=== PATIENT | male | born 1990 | race Caucasian/White ===

== ENCOUNTER 2018-09-06 14:58 | Emergency (ER) | payer SELFPAY ==
[2018-09-06] MEDS: 0.9 % SODIUM CHLORIDE 1,000 ML IV ONE ×2 (15:20→16:30)
--- NOTE | 2018-09-06 15:21 | ED Physician Documentation ---
Chest Pain - HISTORIAN Historian: patient - HPI Stated Complaint: chest pain Chief Complaint: General Adult Onset: minutes (45) Timing: sudden onset Duration: constant Last known Well Date: 09/06/18 Last Known Well Time: 15:00 Last known Well Code/Unknown Code: Unknown Context: other (after smoking meth ) Severity: mild Quality: other (he is sure his heart exploded before he arrived ) Chest Pain Radiation: no radiation Chest Pain Signs/Symptoms: dyspnea, tachypnea. denies: nausea, vomiting Worsened By: nothing Relieved By: nothing Further Comments: yes (He states he was on a train hours directly before coming in to the ER (there is no train station in this town) and he stopped here due to feeling that his heart exploded and he had fluid run all over. He states he ate a cupcake in [place] (unknown time frame) and he is sure she possibly posioned him he is not sure with what and he is not sure when he left [place]. He denies any jaw or arm pain. He feels "numb" all over. He does not take meds daily but does state he took meth about 45 min ago and since he has felt his heart explode on the way and fluid run into his whole body. He is mostly scared because when he was on a train (at some point) he was told by another passenger that he would soon.) - ROS CONST: none - PAST HX [place] risk factors: no pertinent history TAD/AAA risk factors: none Neuro deficit: none GI disease: none Lung disease: none Surgeries/Procedures: none Allergies/Adverse Reactions: Allergies Allergy/AdvReac Type Severity Reaction Status Date / Time No Known Allergies Allergy Verified 09/06/18 15:33 Home Medications: Ambulatory Orders Medication Instructions Recorded 0.9 % Sodium Chloride [Normal 1,000 ml IV NOW #1 iv.soln 09/06/18 Saline] - SOCIAL HX Smoking History: cigarettes Alcohol Use: occasionally Drug Use: methamphetamines - FAMILY HX Family HX: none - VITAL SIGNS Vital Signs: Vital Signs Temp Pulse Resp BP Pulse Ox 118 H 18 144/90 100 09/06/18 14:58 09/06/18 14:58 09/06/18 14:58 09/06/18 14:58 - REVIEWED ASSESSMENTS Nursing Assessment Reviewed: Yes Vitals Reviewed: Yes Progress - Progress Progress: 1545: less anxious. In room resting DG 1640: states he is not feeling better. We discussed results and cause is most likely from the meth use. He states he uses meth all the time and it does not happen DG 1650: discussed he needed a ride home. He states he has no one and he has no money for a hotel and he will sleep in his truck for tonight. Offered a cab he said he had no money. He was advised he was not safe to drive DG ED Results Lab/Radiology - Orders Orders: ED Orders Category Date Time Status Continuous EKG monitoring Q1H Care 09/06/18 15:09 Ordered ACETAMINOPHEN LEVEL Routine Lab 09/06/18 Ordered ALCOHOL MEDICAL USE ONLY Stat Lab 09/06/18 Ordered CBC/PLATELET/DIFF Stat Lab 09/06/18 15:08 Ordered CMP Stat Lab 09/06/18 15:09 Ordered SALICYLATE LEVEL Stat Lab 09/06/18 Ordered UDS [DRUG SCREEN URINE MEDICAL ONLY] Routine Lab 09/06/18 Ordered 0.9 % Sodium Chloride [Normal Saline] 1,000 ml Med 09/06/18 15:10 Ordered IV NOW LORazepam [Ativan] Med 09/06/18 15:10 Once 0.5 mg IV NOW ONE EKG WITH COMPARISON Stat Ther 09/06/18 Ordered Chest Pain Physical Exam - EXAM General Appearance: alert, moderate distress, anxious EENT: eye inspection normal, no signs of dehydration Neck: nml inspection Respiratory: no resp. distress, chest non-tender, nml breath sounds CVS: reg. rate & rhythm, no murmur Abdomen: soft, normal bowel sounds, non-tender Extremities: non-tender, normal range of motion, no evidence of injury, no edema Neuro: oriented X3 Discharge Clincal Impression: Methamphetamine abuse, Anxiety Prescriptions: 0.9 % Sodium Chloride [Normal Saline] 1,000 ml IV NOW #1 iv.soln Referrals: Primary Doctor,No [Primary Care Provider] - 2 Days Comments: 1. DO NOT USE METH 2. Increase fluids 3. Rest 4. Return to ER for any increasing concerns Condition: Stable Disposition: 01 HOME, SELF-CARE Decision to Admit: NO Date of Decison to Admit: 09/06/18 Decision Time: 17:15
[2018-09-06] MEDS: LORazepam 2 MG/ML VIAL IV ONE (15:22)
[2018-09-06 15:23] LABS: MEAN CORPUSCULAR HEMOGLOBIN 31.3 pg (28.0-34.0)
[2018-09-06 15:24] LABS: BASOPHILS % 1.7 (0.0-1.5); EOSINOPHILS % 1.5 % (0.0-6.8); MONOCYTES % 7.3 % (0.0-11.0); NEUTROPHILS # 4.6 # k/uL (1.4-7.7)
[2018-09-06 15:42] LABS: eGFR (Non-African) > 60
[2018-09-06 17:45] VITALS: BP 127/83
[2018-09-19 10:39] LABS: CANNABINOIDS NEGATIVE ng/mL (< 50); METHYLENEDIOXYMETHAMPHETAMINE NEGATIVE ng/mL (<500)
== END 2018-09-06 17:34 | disposition home or self-care (01) ==
LOC: ED 14:58
DX: F15.10 Other stimulant abuse, uncomplicated (principal); F41.9 Anxiety disorder, unspecified
CPT/HCPCS: 36415; 80053; 80320; 80377; 84484; 85025; 96374; 99283; 99284; J2060; G0480; G0481; J7030; S1016